=== PATIENT | male | born 1985 | race Caucasian/White ===

== ENCOUNTER 2017-04-30 00:41 | Emergency (ER) | payer BC ==
[2017-04-30] MEDS: LIDOCAINE 1% (MDV) 20 ML INJ SC (03:14)
[2017-04-30] MEDS: CLINDAMYCIN 300 MG INJ IM (04:05)
== END 2017-04-30 04:12 | disposition home or self-care (01) ==
LOC: FTE 00:41
DX: K61.1 Rectal abscess (principal)
CPT/HCPCS: 46040; 96372; 99284-25